=== PATIENT | female | born 1970 | race Caucasian/White ===

== ENCOUNTER 2022-12-02 20:03 | Emergency (ER) | payer OTHER ==
[~2022-12-02] VITALS: Ht 177.8 cm; Wt 97.5 kg
[2022-12-02 20:25] VITALS: BP 107/77; PULSE 87; RESP 16; TEMP 97.8; O2SAT 97
[2022-12-02] MEDS ORDERED: CEPH500C16 PO (21:42)
== END 2022-12-02 21:45 | disposition home or self-care (01) ==
LOC: MED 20:03
DX: L03.113 Cellulitis of right upper limb (principal); F17.200 Nicotine dependence, unspecified, uncomplicated; Z98.84 Bariatric surgery status
CPT/HCPCS: 99281